=== PATIENT | male | born 2005 | race Two or more races ===

== ENCOUNTER 2024-09-23 11:30 | Outpatient (RCR) | payer MEDICAID, SELFPAY ==
--- NOTE | 2024-09-15 13:49 | PT.OIERPT ---
PT OP Initial Eval Patient Information Outpatient Physical Therapy Treatment Date: 09/15/24 Visit Reasons: Low back pain Medical Diagnosis: Back Pain Treatment Dx #1: Back Pain Smoking Status Smoking Status: Never smoker Initial Assessment Subjective: Pt is a 18 y/o male reports of chronic lower back pain (11/11). Pt denies of pain down the legs. Xray are normal no MRI has been done. Pt has limitation with sitting, standing, chores, self care, cooking, cleaning, working out, and performing recreational activities. Objective: L/S AROM: all motions are WFL Hip PROM: all motions are WFL except IR Hip MMTs: grossly 3/5 Special Test (+) montilla Palpation: TTP and hypomobile L5 facets Assessment: Pt demonstrate back pain with mobility deficits leading to difficulty with ADLs. Pt will attempt physical therapy if pain persist Pt will be refer back to provider Short Term and Intermediate Goals 1) Increase L/S AROM WNL in 6 wks to be able to perform chores 2) Decrease back pain to 2/10 in 6 wks to be able to sit and stand more than 30 mins 3) Increase core strength WFL in 6 wks to be able to perform recreational activities 4) Indep with HEP Treatment Plan 1) Manual Therapy 2) Therapeutic Activities 3) Therapeutic Exercises 4) Modalities (ice, heat) Frequency and Duration: 2 x wk for 6 wks Certification Dates: 09/15/24 to 12/16/24 Procedure Charges OP PT Eval Mod Complex 30 minutes: Yes
--- NOTE | 2024-09-21 15:08 | PT.ODAYNRPT ---
PT Outpatient Daily Note OP Daily Note Outpatient Physical Therapy Treatment Date: 09/21/24 Visit Reasons: Low back pain Subjective: Pt's back is doing okay. Pt does not have new concerns. Objective: Please se flow chart for list of ther ex performed Assessment: tolerate exercises with minimal pain Plan: Continue with PT Length of Time (minutes) of Treatment: 30 Minutes Procedure Charges Therapeutic Exercise 30 minutes: Yes
--- NOTE | 2024-09-23 12:50 | PT.ODAYNRPT ---
PT Outpatient Daily Note OP Daily Note Outpatient Physical Therapy Treatment Date: 09/23/24 Visit Reasons: Low back pain Subjective: Pt's back feels okay. No new concerns to report. Objective: Please see flow chart for list of ther ex performed Assessment: tolerate exercises with minimal pain; progress patient to more core exercises today Plan: Continue with PT Length of Time (minutes) of Treatment: 30 Minutes Procedure Charges Therapeutic Exercise 30 minutes: Yes
== END 2024-10-02 23:59 | disposition home or self-care (01) ==
LOC: CPTX 11:30
PROVIDERS: PCP Internal Medicine; Referring Provider Internal Medicine; Visit Provider Internal Medicine
DX: M54.50 Low back pain, unspecified (principal); G89.29 Other chronic pain
CPT/HCPCS: 97110; 97162

== ENCOUNTER 2024-10-14 09:30 | Outpatient (RCR) | payer MEDICAID, SELFPAY ==
--- NOTE | 2024-10-04 11:49 | PT.ODAYNRPT ---
PT Outpatient Daily Note OP Daily Note Outpatient Physical Therapy Treatment Date: 10/04/24 Visit Reasons: Low back pain Subjective: Pt's back is about the same. No change in overall symptoms. Pt stopped working out due to pain. Objective: Please see flow chart for list of ther ex performed Assessment: correct patient's form with exercise and standing posture. Pt likes to be hyperextend lumbar which frequently need cues to keep spine neutral. As patient is able to keep neutral spine throughout exercises patient reports of less back pain Plan: Continue with PT Length of Time (minutes) of Treatment: 30 Minutes Procedure Charges Therapeutic Exercise 30 minutes: Yes
--- NOTE | 2024-10-06 11:42 | PTNOTE_ITS ---
PT Outpatient Daily Note OP Daily Note Outpatient Physical Therapy Treatment Date: 10/06/24 Visit Reasons: Low back pain Subjective: Pt's back feels much better. Pt was sore after last session. Objective: Please see flow chart for list of ther ex performed Assessment: patient is more aware of body piercer and require less cue to decrease lumbar hyperextension with exercises. Improved L/S mobility post STM/Joint mob Plan: Continue with PT Length of Time (minutes) of Treatment: 30 Minutes Procedure Charges Therapeutic Exercise 30 minutes: Yes
--- NOTE | 2024-10-12 10:05 | PT.ODAYNRPT ---
PT Outpatient Daily Note OP Daily Note Outpatient Physical Therapy Treatment Date: 10/12/24 Visit Reasons: Low back pain Subjective: Pt's back feels much better. Pt does not have new concerns. Objective: Please see flow chart for list of ther ex performed Assessment: tactile cue and verbal cue to to decrease lumbar lordosis with OH squatting in loading. Pt exhibit good hip hinging with OH squat. Pt given OH squat as HEP to continue at home to work on form Plan: Continue with PT Length of Time (minutes) of Treatment: 30 Minutes Procedure Charges Therapeutic Exercise 30 minutes: Yes
--- NOTE | 2024-10-14 09:51 | PT.ODAYNRPT ---
PT Outpatient Daily Note OP Daily Note Outpatient Physical Therapy Treatment Date: 10/14/24 Visit Reasons: Low back pain Subjective: Pt's back and core sore from previous session. Pt mentioned he's able to work longer now with less pain. Objective: Please see flow chart for list of ther ex performed Assessment: cues to keep spine neutral with level 2 side plank/frontal plank. Pt continues to improve with overhead squat form with neutral spine Plan: Continue with PT Length of Time (minutes) of Treatment: 30 Minutes Procedure Charges Therapeutic Exercise 30 minutes: Yes
== END 2024-11-01 23:59 | disposition home or self-care (01) ==
LOC: CPTX 09:30
PROVIDERS: PCP Internal Medicine; Referring Provider Internal Medicine; Visit Provider Internal Medicine
DX: M54.50 Low back pain, unspecified (principal); G89.29 Other chronic pain
CPT/HCPCS: 97110

== ENCOUNTER 2024-11-22 13:00 | Outpatient (RCR) | payer MEDICAID, SELFPAY ==
--- NOTE | 2024-11-09 14:02 | PT.ODAYNRPT ---
PT Outpatient Daily Note OP Daily Note Outpatient Physical Therapy Treatment Date: 11/09/24 Visit Reasons: low back pain Subjective: Pt reports back is doing ok. Objective: Please see flow sheet for ther ex list. Assessment: Pt demonstrates poor abdominal recruitment and increase lumbar lordosis with modified bug exercise, decrease difficulty with exercise resulting in improved isometric abdominal recruitment and decrease l/s discomfort. Plan: Continue with poC. Length of Time (minutes) of Treatment: 30 Minutes Procedure Charges Therapeutic Exercise 30 minutes: Yes
--- NOTE | 2024-11-17 15:21 | PT.ODAYNRPT ---
PT Outpatient Daily Note OP Daily Note Outpatient Physical Therapy Treatment Date: 11/17/24 Visit Reasons: low back pain Subjective: Pt reports that back continue to hurt, lifting and bending continues to aggravate symptoms. Objective: Please see flow sheet for ther ex list. Assessment: Pt instructed on maintaining spine in neutral during bird dog exercise, pt able to replicate with good technique. Plan: Continue with poC. Length of Time (minutes) of Treatment: 30 Minutes Procedure Charges Therapeutic Exercise 30 minutes: Yes
--- NOTE | 2024-11-22 13:25 | PT.ODS1RPT ---
PT OP Progress/Discharge Note Date of Service: 11/22/24 Progress Note/DC Note Progress Note/Discharge Note: DC Note Patient Information Visit Reasons: low back pain Medical Diagnosis: Back Pain Treatment Dx #1: Back Pain Service Discharge Date: 11/22/24 Status Subjective: Pt continues to have back pain despite doing a few weeks of therapy. Due to pain Pt has limitation with recreational activities, chores, self care, cooking, cleaning, and performing recreational activities. Objective: L/S AROM: all motions are WNL Hip PROM: all motions are WFL Hip MMTs: grossly 3+/5 Muscle Length: Hs tightness Assessment: Pt demonstrate functional L/S mobility and core strength, however, no change in pain leading to difficulty with ADLs. Pt wants a MRI, however, advised to discuss with PCP if indicated. At this time Pt will be d/c from care due to minimal progress towards goals. Pt was instructed on HEP last session and educated to continue exercises to maintain overall mobility. Pt performed all exercises safely, thank you for your referrals. Plan: D/C home with HEP and follow up with MD SWANSON Further imaging based on PCP's discretion Procedure Charges Therapeutic Exercise 30 minutes: Yes
== END 2024-12-02 23:59 | disposition home or self-care (01) ==
LOC: CPTX 13:00
PROVIDERS: PCP Internal Medicine; Referring Provider Internal Medicine; Visit Provider Internal Medicine
DX: M54.50 Low back pain, unspecified (principal); G89.29 Other chronic pain
CPT/HCPCS: 97110